=== PATIENT | female | born 1980 | race Asian ===

== ENCOUNTER 2018-08-15 14:49 | Outpatient (CLI) | payer OTHER ==
[2018-08-15] MEDS ORDERED: SIMV20TA3 PO (15:13)
[2018-08-15] MEDS ORDERED: LISI5TAB7 PO (15:13)
[2018-08-15] MEDS ORDERED: ASPI-496 PO (15:13)
[2018-08-15 15:47] LABS: ALBUMIN 3.6 g/dL (3.4-5.0); ANION GAP 7 mmol/L (5-15); CALCIUM 8.9 mg/dL (8.5-10.1); CHLORIDE 107 mmol/L (98-107)
[2018-08-15 15:52] LABS: ALANINE AMINOTRANSFERASE 21 U/L (12-78); ALKALINE PHOSPHATASE 44 U/L (45-117); BILIRUBIN,TOTAL 0.2 mg/dL (0.2-1.0); CREATININE 0.75 mg/dL (0.55-1.02); TOTAL PROTEIN 7.5 g/dL (6.4-8.2)
== END 2018-08-15 23:59 | disposition home or self-care (01) ==
LOC: STAR 14:49
PROVIDERS: ATTEND Obstetrics & Gynecology
DX: Z01.818 Encounter for other preprocedural examination (principal); N84.0 Polyp of corpus uteri
CPT/HCPCS: 36415; 80053; 93005

== ENCOUNTER 2018-08-22 10:43 | Day surgery (SDC) | payer OTHER ==
[~2018-08-22] VITALS: Ht 160 cm; Wt 67.9 kg
[~2018-08-22 10:43] MED LIST: ASPI-496 PO; FENTANYL PF 100 MCG/2ML IV PRN; HYDROmorphone 1 MG/ML, 1ML INJ IV PRN; LABETALOL 5MG/ML, 20ML IV PRN; LISI5TAB7 PO; MEPERIDINE/PF 25MG/0.5ML IVPush PRN; MIDAZOLAM 1 MG/ML, 2ML IV PRN; ONDANSETRON 2MG/ML, 2ML IVPush PRN; OXYcodone 5 MG/5 ML ORAL.SOL UDC PO PRN; SIMV20TA3 PO
[2018-08-22] MEDS ORDERED: LACTATED RINGERS 1,000 ML IV SCH (11:09)
[2018-08-22 11:23] VITALS: BP 139/83
[2018-08-22] MEDS ORDERED: SILVER NITRATE STICK TP ONE (12:04)
[2018-08-22] MEDS ORDERED: BUPIVACAINE/PF 0.25% ONE (12:04)
[2018-08-22] MEDS ORDERED: EPINEPHRINE 1 MG/ML, 1ML ONE (12:05)
[2018-08-22] MEDS ORDERED: MIDAZOLAM 1 MG/ML, 2ML ONE (12:12)
[2018-08-22] MEDS ORDERED: FENTANYL PF 100 MCG/2ML ONE (12:12)
[2018-08-22] MEDS ORDERED: PROPOFOL 10 MG/ML, 20ML ONE (12:14)
[2018-08-22] MEDS ORDERED: LIDOCAINE-MPF 2% ,5ML ONE (12:14)
[2018-08-22 12:20] LABS: HCG UR SG 1.009 (1.003-1.030)
[2018-08-22] MEDS ORDERED: CEFAZOLIN 1,000 MG ONE (12:27)
[2018-08-22] MEDS ORDERED: DEXAMETHASONE 4 MG/ML, 1ML ONE ×2 (12:33→12:34)
[2018-08-22] MEDS ORDERED: ONDANSETRON 2MG/ML, 2ML ONE ×2 (12:34)
[2018-08-22] MEDS ORDERED: FENTANYL PF 100 MCG/2ML IV PRN (13:00)
[2018-08-22] MEDS ORDERED: ACETAMINOPHEN 325 MG TABLET PO PRN (13:00)
[2018-08-22] MEDS ORDERED: MEPERIDINE/PF 25MG/0.5ML IVPush PRN (13:00)
[2018-08-22] MEDS ORDERED: MORPHINE SULFATE 4 MG/ML, 1ML IVPush PRN (13:00)
[2018-08-22] MEDS ORDERED: PROMETHAZINE 25 MG/ML, 1ML IV PRN (13:00)
[2018-08-22] MEDS ORDERED: PROMETHAZINE 12.5 MG SUPP PR PRN (13:00)
[2018-08-22] MEDS ORDERED: HYDROmorphone 2 MG/ML, 1ML IVPush PRN (13:00)
[2018-08-22] MEDS ORDERED: LABETALOL 5MG/ML, 20ML IV PRN (13:00)
[2018-08-22] MEDS ORDERED: EPHEDRINE 50 MG/ML, 1ML IVPush PRN (13:00)
[2018-08-22] MEDS ORDERED: OXYcodone 5 MG/5 ML ORAL.SOL UDC PO PRN (13:00)
[2018-08-22] MEDS ORDERED: hydrALAzine 20 MG/ML, 1ML IV PRN (13:00)
[2018-08-22] MEDS ORDERED: ONDANSETRON 2MG/ML, 2ML IV PRN (13:00)
[2018-08-22] MEDS ORDERED: HALOPERIDOL 5 MG/ML IV PRN (13:00)
[2018-08-22] MEDS ORDERED: ONDANSETRON ODT 8 MG PO PRN (13:00)
[2018-08-22] MEDS ORDERED: MIDAZOLAM 1 MG/ML, 2ML IV PRN (13:00)
[2018-08-22] MEDS ORDERED: DIAZEPAM 5 MG/ML, 2ML IVPush PRN (13:00)
[2018-08-22] MEDS ORDERED: ALBUTEROL SULFATE 2.5 MG/3 ML NPPB PRN (13:00)
[2018-08-22] MEDS ORDERED: ACETAMINOPHEN 650 MG/20.3 ML UDC ONE (13:23)
== END 2018-08-22 15:35 | disposition home or self-care (01) ==
LOC: OUT 10:43
PROVIDERS: ATTEND Obstetrics & Gynecology
DX: N84.0 Polyp of corpus uteri (principal); D25.9 Leiomyoma of uterus, unspecified; I10 Essential (primary) hypertension; E78.00 Pure hypercholesterolemia, unspecified; Z79.82 Long term (current) use of aspirin; Z79.899 Other long term (current) drug therapy; Z88.0 Allergy status to penicillin; Z86.73 Personal history of transient ischemic attack (TIA), and cerebral infarction without residual deficits
CPT/HCPCS: 58558; 81025; 88305; J0171; J0690; J1100; J2250; J2405; J2704; J3010; J3490; J7120